=== PATIENT | male | born 1970 | race Caucasian/White ===

== ENCOUNTER 2016-12-22 23:10 | Emergency (ER) | payer BC ==
[~2016-12-22] VITALS: Ht 185.4 cm; Wt 117.0 kg
--- NOTE | ~2016-12-22 | CT4 ---
[facility] A Service of [facility] RADIOLOGY TEXT RESULTS PATIENT: ANJUM ROSALES LOCATION: SED : 70 UNIT #: [id number] AGE: [address]: Gerry Avila DO SEX: M ORDER DR: [id number] [place] [id number] E MR#: [id number] Acc #: [id number] NAME: ANJUM ROSALES. : 1970 SEX: M STUDY DATE/TIME: 12/23/2016 0:41 UNIT: SED ROOM: STUDY DESCRIPTION: CT Abd and Pelv Wo Cont Attending Physician: Gerry Avila Ordering Physician: Gerry Avila Primary Care Physician: Anjum Nguyễn M.D. MEDICAL IMAGING REPORT This report is preliminary unless electronic signature is present. EXAM CT abdomen and pelvis, noncontrast, kidney stone protocol, 12/23/2016 HISTORY 46-year-old male in the ED complaining of new onset right flank pain with nausea beginning earlier tonight. TECHNIQUE CT examination of the abdomen and pelvis without oral or IV contrast using kidney stone protocol. This CT exam was performed with one or more of the following radiation dose reduction techniques: automatic control, adjustment of mA and/or kV according to patient size, and iterative reconstruction. FINDINGS There is a 2 mm obstructing calculus in the right upper ureter just below the UPJ causing mild right hydronephrosis. No additional stone material is identified within the kidneys, ureters or urinary bladder. Kidneys and urinary tract otherwise negative. Liver, pancreas and spleen are normal in size and appearance. No bile duct dilatation. Small bowel and colon are normal in caliber and appearance, as imaged. No evidence of acute appendicitis. PELVIS FINDINGS: Urinary bladder, prostate and rectum are within normal limits. Limited lung base images show no active disease. IMPRESSION 1. Obstructing 2 mm right proximal ureter stone just below the UPJ causing mild right hydronephrosis. 2. The remainder of the examination is negative. [facility] A Service of [facility] RADIOLOGY TEXT RESULTS PATIENT: ANJUM ROSALES LOCATION: SED : 70 UNIT #: [id number] AGE: [address]: Gerry Avila DO SEX: M ORDER DR: 1. Dictated by... Greyson Melgar M.D. THIS IS AN ELECTRONICALLY VERIFIED REPORT Greyson Melgar M.D. at 12/23/2016 5:26 AM TONI/eleanor TD: 12/23/2016 03:11 JOB #: [id number] MEDICAL IMAGING REPORT Page 1 of 1
[~2016-12-22 23:10] MED LIST: DARVOCET-N 1001 TAB PO; FLEXERIL PO; NAPROXEN PO; PERCOCET5/325 PO; PHENERGAN PO
[2016-12-22] MEDS ORDERED: LISINOPRIL10 MG (23:18)
[2016-12-22] MEDS ORDERED: CELEXA20 MG (23:18)
[2016-12-22 23:41] LABS: BASOPHIL# 0.1 X10e3 (0-0.3); BASOPHIL% 0.9 % (0-2.5); EOSINOPHIL# 0.3 X10e3 (0-0.7); EOSINOPHIL% 3.1 % (0.0-7.0); HEMATOCRIT 43.2 % (38.0-50.0); HEMOGLOBIN 14.8 gm/dL (13.0-16.0); LYMPHOCYTE# 2.7 X10e3 (1.0-3.5); LYMPHOCYTE% 27.6 % (17.0-45.0); MEAN CELL VOLUME 85.6 FL (83-96); MEAN CORPUSCULAR HEMOGLOBIN 29.3 PG (28-34); MEAN CORPUSCULAR HGB CONC 34.2 g/dL (30-36); MEAN PLATELET VOLUME 8.9 FL (6.5-11.5); MONOCYTE# 0.9 X10e3 (0-1.0); MONOCYTE% 8.8 % (3.0-12.0); NEUTROPHIL# 5.9 X10e3 (1.5-7.1); NEUTROPHIL% 59.6 % (40-75); PLATELET COUNT 185 X10e3 (140-420); RED BLOOD COUNT 5.05 X10e (3.90-5.60); RED CELL DISTRIBUTION WIDTH 13.1 % (11.0-15.5); WHITE BLOOD COUNT 9.9 X10e3 (4.0-10.5)
[2016-12-22 23:43] LABS: DIFF IND NO
[2016-12-22 23:53] LABS: URINE SOURCE CLEAN CATCH
[2016-12-22 23:57] LABS: URINE APPEARANCE CLEAR; URINE BILIRUBIN NEG (NEG); URINE BLOOD 3+ (NEG); URINE COLOR YELLOW; URINE GLUCOSE NEG (NORM); URINE KETONE NEG (NEG); URINE LEUKOCYTE ESTERASE NEG (NEG); URINE NITRATE NEG (NEG); URINE PH 5.5 (5-8); URINE PROTEIN NEG (NEG); URINE UROBILINOGEN 0.2 MG/DL (NORM)
[2016-12-23] LABS: MICRO INDICATED? YES
[2016-12-23 00:03] LABS: ALBUMIN SERUM 4.1 g/dL (3.5-5.0); ALKALINE PHOSPHATASE 66 U/L (32-92); ALT (SGPT) 62 U/L (10-40); AST (SGOT) 33 U/L (10-42); BILIRUBIN,TOTAL 0.1 mg/dL (0.2-2.0); BLOOD UREA NITROGEN 15 mg/dL (9-23); BUN/CREATININE RATIO 16.66; CALCIUM SERUM 9.3 mg/dL (8.4-10.2); CARBON DIOXIDE 29 mmol/L (22-31); CHLORIDE 102 mmol/L (100-111); CREATININE SERUM 0.9 mg/dL (0.6-1.4); GLOM FILT RATE Estimated 102.1 mL/min (>60); GLUCOSE FASTING 157 mg/dL (70-110); LIPASE 24 U/L (22-51); PROTEIN TOTAL SERUM 7.2 g/dL (6.0-8.3); SODIUM 138 mmol/L (135-145)
[2016-12-23 00:06] LABS: BILIRUBIN, DIRECT <0.1 mg/dL (0.0-0.2)
[2016-12-23 00:09] LABS: CULTURE INDICATED? NO; URINE BACTERIA NEG (NEG); URINE RBC 0-2 /[HPF] (0-2); URINE WBC 0-2 /[HPF] (0-5)
== END 2016-12-23 01:30 | disposition home or self-care (01) ==
LOC: SED 23:10
PROVIDERS: Emergency Medicine
DX: N13.2 Hydronephrosis with renal and ureteral calculous obstruction (principal); Z88.5 Allergy status to narcotic agent
CPT/HCPCS: 36415; 74176; 80048; 80076; 81003; 83690; 85025; 96361; 96374; 96375; 99284; J1885; J2270; J2405